=== PATIENT | male | born 1985 | race Caucasian/White ===

== ENCOUNTER 2021-07-11 05:45 | Emergency (ER) | payer OTHER | END 2021-07-11 06:55 | disposition home or self-care (01) | LOC: MW.ED 05:45 | DX: S53.402A Unspecified sprain of left elbow, initial encounter (principal); F17.210 Nicotine dependence, cigarettes, uncomplicated; V49.40XA Driver injured in collision with unspecified motor vehicles in traffic accident, initial encounter; Y92.410 Unspecified street and highway as the place of occurrence of the external cause | CPT/HCPCS: 73080-26-LT; 73080-LT; 99282; 99284 ==